=== PATIENT | female | born 1985 | race African-American/Black ===

== ENCOUNTER 2024-09-29 12:08 | Emergency (ER) | payer MEDICAID ==
[~2024-09-29] VITALS: Ht 165.1 cm; Wt 81.8 kg
[2024-09-29 12:10] VITALS: TEMP 98.4
[2024-09-29 13:46] LABS: APPEARANCE,URINE CLEAR (CLEAR); BILIRUBIN,URINE NEGATIVE (NEGATIVE); COLOR,URINE YELLOW (YELLOW); GLUCOSE, URINE (UA) NEGATIVE (NEGATIVE); KETONES,URINE =>150 mg/dL (NEGATIVE); LEUKOCYTE ESTERASE ,URINE TRACE (NEGATIVE); NITRATE,URINE NEGATIVE (NEGATIVE); OCCULT BLOOD,URINE NEGATIVE (NEGATIVE); PROTEIN,URINE 30-70 mg/dL (NEGATIVE); SPECIFIC GRAVITIY, URINE 1.033 (1.003-1.030); UROBILINOGEN,URINE <=1.0 mg/dL (<=1.0)
[2024-09-29 13:53] LABS: BACTERIA,URINE None Seen /HPF (None Seen); HCG,QUAL URINE POSITIVE (NEGATIVE); RBC,URINE None Seen /HPF (0-2); SQUAMOUS EPITHELIAL CELL,UR Few /LPF (None Seen); WBC,URINE 0-2 /HPF (0-5)
[2024-09-29 13:56] LABS: BASOPHILS % (AUTO) 0.2 % (0.0-2.0); EOSINOPHILS % (AUTO) 0.7 % (1.0-6.0); HEMATOCRIT 37.7 % (36-46); HEMOGLOBIN 12.7 g/dL (12.0-16.0); LYMPHOCYTES # (AUTO) 1.3 K/uL (1.0-4.8); LYMPHOCYTES % (AUTO) 18.9 % (22.0-44.0); MEAN CORPUSCULAR HEMOGLOBIN 31.7 pg (26.0-34.0); MEAN CORPUSCULAR HGB CONC 33.6 G/dL (31.0-37.0); MEAN CORPUSCULAR VOLUME 94 fL (80-100); MONOCYTES # (AUTO) 0.5 K/uL (0.1-1.0); MONOCYTES % (AUTO) 7.7 % (2.0-9.0); NEUTROPHILS # (AUTO) 5.1 K/uL (1.8-7.7); NEUTROPHILS % (AUTO) 72.5 % (40.0-70.0); PLATELET COUNT (AUTO) 212 K/uL (150-450); RED CELL DISTRIBUTION WIDTH 13.1 % (11.5-14.5); WHITE BLOOD COUNT (AUTO) 7.1 K/uL (4.5-11.0)
[2024-09-29 14:04] LABS: ANION GAP 6 mmol/L (8-16); CALCIUM, TOTAL 8.8 mg/dL (8.8-10.5); CARBON DIOXIDE 24 mmol/L (22-29); CHLORIDE 104 mmol/L (98-107); CREATININE 0.64 mg/dL (0.60-1.30); GLOMERULAR FILTR. RATE CALC > 60 mL/min (>60); GLUCOSE,RANDOM 79 mg/dL (70-110); SODIUM SERUM 134 mmol/L (136-145); UREA NITROGEN, BLOOD 12 mg/dL (7-18)
[2024-09-29 14:10] LABS: ALBUMIN 3.4 g/dL (3.4-5.0); BILIRUBIN,DIRECT 0.2 mg/dL (0.00-0.20); BILIRUBIN,TOTAL 0.6 mg/dL (0.1-1.0); TOTAL PROTEIN, SERUM 7.1 g/dL (6.4-8.2)
[2024-09-29] MEDS: ONDANSETRON HCL 4 MG/2 ML VIAL IVP ONE (14:12)
[2024-09-29] MEDS: KETOROLAC TROMETHAMINE 30 MG/ML VIAL IVP ONE (14:12)
[2024-09-29] MEDS: SODIUM CHLORIDE 0.9% 1,000 ML IV ONE (14:13)
[2024-09-29] MEDS ORDERED: MAG30ORA11 PO (17:48)
[2024-09-29] MEDS ORDERED: ACET-66 PO (17:48)
[2024-09-29] MEDS ORDERED: PREN-18 PO (17:48)
[2024-09-29 18:21] VITALS: BP 134/82; PULSE 76; RESP 18; O2SAT 99
== END 2024-09-29 18:27 | disposition home or self-care (01) ==
LOC: EMS 12:11
DX: O26.891 Other specified pregnancy related conditions, first trimester (principal); O99.611 Diseases of the digestive system complicating pregnancy, first trimester; K21.9 Gastro-esophageal reflux disease without esophagitis; Z79.899 Other long term (current) drug therapy; Z3A.01 Less than 8 weeks gestation of pregnancy
CPT/HCPCS: 99285; 96374; 76700; 76801; 96375; 80048; 80076; 81001; 83690; 84703; 85025; 36415; J1885; J2405; J7030

== ENCOUNTER 2024-11-16 16:58 | Emergency (ER) | payer MEDICAID ==
[~2024-11-16] VITALS: Ht 165.1 cm; Wt 97.0 kg
[~2024-11-16 16:58] MED LIST: ACET-66 PO; MAG30ORA11 PO; PREN-18 PO
[2024-11-16 17:14] VITALS: BP 102/68; PULSE 76; RESP 16; TEMP 97.9; O2SAT 98
[2024-11-16] MEDS: FAMOTIDINE 20 MG TABLET PO ONE (18:36)
[2024-11-16 19:30] LABS: APPEARANCE,URINE HAZY (CLEAR); GLUCOSE, URINE (UA) NEGATIVE (NEGATIVE); LEUKOCYTE ESTERASE ,URINE LARGE (NEGATIVE); NITRATE,URINE NEGATIVE (NEGATIVE); OCCULT BLOOD,URINE NEGATIVE (NEGATIVE); SPECIFIC GRAVITIY, URINE 1.028 (1.003-1.030)
[2024-11-16] MEDS: PYRIDOXINE HCL 50 MG TABLET PO ONE (19:33)
[2024-11-16 19:44] LABS: SQUAMOUS EPITHELIAL CELL,UR Moderate /LPF (None Seen)
[2024-11-16] MEDS: CEPHALEXIN MONOHYDRATE 500 MG CAPSULE PO ONE (20:36)
[2024-11-16] MEDS ORDERED: DOXY1TAB3 PO (21:43)
[2024-11-16] MEDS ORDERED: FAMO20 PO (21:43)
[2024-11-16] MEDS ORDERED: CEPH-558 PO (23:12)
== END 2024-11-16 21:50 | disposition home or self-care (01) ==
LOC: EMS 16:58
DX: K21.9 Gastro-esophageal reflux disease without esophagitis (principal); Z79.899 Other long term (current) drug therapy
CPT/HCPCS: 81001; 87086; 99284; Z7502; Z7610